=== PATIENT | female | born 1965 | race Caucasian/White ===

== ENCOUNTER → 2020-02-14 11:55 | Outpatient (CLI) | payer BC, SELFPAY ==
[2020-02-14 15:28] LABS: Potassium 4.1 mmol/L (3.5-5.1)
== END ==
PROVIDERS: PCP Family Medicine; Referring Provider Physician Assistant Medical; Visit Provider Physician Assistant Medical
DX: L71.8 Other rosacea (principal)
CPT/HCPCS: 36415; 84132